=== PATIENT | male | born 1940 | race Caucasian/White ===

== ENCOUNTER 2021-10-24 18:18 | Emergency (ER) | payer MEDICARE ==
[~2021-10-24] VITALS: Ht 172.7 cm; Wt 66.0 kg
[2021-10-24 20:14] LABS: HEMATOCRIT 34.7 % (39.0-50.0); HEMOGLOBIN 10.5 g/dl (14.0-18.0); IMMATURE GRANULOCYTES 0.1 % (0.0-5.0); MEAN CELL VOLUME 112.7 fL CALC (80.0-100.0); MEAN CORPUSCULAR HGB 34.1 pG CALC (26.0-32.0); MEAN CORPUSCULAR HGB CONC 30.3 g/dL CAL (32.0-36.0); NEUT# 6.25 thou/uL (1.82-7.42); RED BLOOD COUNT 3.08 mill/uL (4.70-6.10); RED CELL DISTRI WIDTH 17.7 % (11.5-15.5)
[2021-10-24 20:26] LABS: ALBUMIN 3.3 g/dL (3.2-5.0); ALKALINE PHOSPHATASE 73 u/l (38-126); BILIRUBIN, TOTAL 0.4 mg/dL (0.0-1.4); BUN 59 mg/dL (8-23); BUN/CREATININE RATIO 14 (12-20 (CALC)); CHLORIDE 127 mmol/l (95-108); CREATININE 4.2 mg/dL (0.7-1.3); GFR 14 ML/MIN (>=60 (CALC)); GFR FOR AFR.AMER. 16 ML/MIN (>=60 (CALC)); SGOT/AST 26 u/l (19-48); SODIUM 145 mmol/l (137-146); TOTAL PROTEIN 6.4 g/dL (6.3-8.2)
[2021-10-24 20:35] LABS: ANION GAP 16 (6-22 (CALC)); POTASSIUM 5.8 mmol/l (3.5-5.1)
[2021-10-24 20:36] LABS: CARBON DIOXIDE 8 mmol/l (22-30)
[2021-10-24 20:38] LABS: MYOGLOBIN 157 ng/mL (0 - 121)
[2021-10-25] MEDS ORDERED: ZITHROMAX250 MG PO (00:29)
[2021-10-25] MEDS ORDERED: MEDDOSEPAK PO (00:29)
[2021-10-25 00:41] VITALS: BP 139/63
== END 2021-10-25 00:41 | disposition left against medical advice (07) ==
LOC: ED 18:18 → ED-I 23:05 → ED 10-25 00:41
PROVIDERS: Emergency Medicine
DX: U07.1 COVID-19 (principal); J12.82 Pneumonia due to coronavirus disease 2019; E87.8 Other disorders of electrolyte and fluid balance, not elsewhere classified; E87.2 Acidosis; I12.9 Hypertensive chronic kidney disease with stage 1 through stage 4 chronic kidney disease, or unspecified chronic kidney disease; N18.4 Chronic kidney disease, stage 4 (severe); Z91.19 Patient's noncompliance with other medical treatment and regimen; Z85.51 Personal history of malignant neoplasm of bladder; Z90.6 Acquired absence of other parts of urinary tract; Z96.0 Presence of urogenital implants